=== PATIENT | female | born 2000 | race Hispanic/Latino ===

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

== ENCOUNTER 2020-04-06 07:08 | Outpatient (CLI) | payer OTHER ==
[2020-04-07 12:16] LABS: SARS-CoV-2 MS2 Positive; SARS-CoV-2 N Gene Negative; SARS-CoV-2 S Gene Negative; SARS-CoV-2 orf1ab Negative
== END 2020-04-06 07:09 | disposition home or self-care (01) ==
LOC: LABSCS 07:08
PROVIDERS: ATTEND Family Medicine
DX: Z01.812 Encounter for preprocedural laboratory examination (principal); Z11.59 Encounter for screening for other viral diseases
CPT/HCPCS: 87635; U0003

== ENCOUNTER 2020-04-06 16:24 | Inpatient (IN) | payer OTHER ==
[~2020-04-06 16:24] MED LIST: Bupivacaine 0.25% HCL 30 ML VIAL ONE
[2020-04-06 17:15] VITALS: BMI 21.9
[2020-04-06] MEDS ORDERED: Ondansetron PF 4 MG/2 ML Vial IVP PRN ×2 (17:26→19:26)
[2020-04-06] MEDS ORDERED: NS / Oxytocin 40 units/1000ml 1,000 ML IV PRN ×2 (17:26→22:31)
[2020-04-06] MEDS ORDERED: Promethazine HCl 25 MG/ML VIAL IM PRN ×2 (17:26→19:26)
[2020-04-06] MEDS ORDERED: Ibuprofen 800 MG TAB PO PRN (17:26)
[2020-04-06] MEDS ORDERED: hydrALAZINE 20 MG/ML VIAL SLOW IVP PRN ×2 (17:26→22:46)
[2020-04-06] MEDS ORDERED: Butorphanol Tartrate 1 MG/ML VIAL SLOW IVP PRN (17:26)
[2020-04-06] MEDS ORDERED: Lidocaine 1% (PF) 30 ML VIAL SC PRN (17:26)
[2020-04-06] MEDS ORDERED: HYDROcodone/Acetaminophen 5/325 mg Tablet PO PRN ×2 (17:26)
[2020-04-06] MEDS ORDERED: NS w/ Oxytocin 10 units 500 ML IV SCH ×2 (17:30)
[2020-04-06] MEDS: Lactated Ringer's 1,000 ML IV SCH ×2 (17:43→19:55)
[2020-04-06 18:03] LABS: Hemoglobin 13.3 g/dL (12.0-16.0); Mean Corpuscular HGB CONC 33.6 g/dL (32.0-36.0); Mean Corpuscular Hemoglobin 29.8 pg (25.0-35.0); Mean Corpuscular Volume 88.7 fL (78.0-98.0); Mean Platelet Volume 10.9 fL (7.4-10.4); Platelet Count 149 thou/uL (130-400); RBC Distribution Width 12.3 % (11.5-14.5); Red Blood Cell (RBC) Count 4.46 mill/uL (4.00-5.20); White Blood Cell (WBC) Count 12.2 thou/uL (4.8-10.8)
[2020-04-06] MEDS ORDERED: Fentanyl 4 mcg/Bup 0.1% Cadd 100 ML ONE (18:07)
--- NOTE | 2020-04-06 18:38 | PDOC.LDHP ---
Labor and Delivery H&P Chief complaint: contractions HPI: Pt presents w onset of contractions. No LOF or bleeding. Current gestational age (weeks): 39 Due date: 04/08/20 Dating criteria: last menstrual period, second trimester ultrasound Grav: 1 Para: 0 Current complications: none Abnormal US findings: No Current medications: pre-nilam vitamins Previous surgical history: none Allergies/Adverse Reactions: Allergies Allergy/AdvReac Type Severity Reaction Status Date / Time No Known Allergies Allergy Verified 04/06/20 17:06 Social history: none - Physical Exam Vital signs reviewed and normal: yes General: breathing through contractions Heart: RRR Lungs: CTAB Abdomen: gravid Extremeties: no edema FHT: category 1 - Vaginal Exam cm dilated: 6 (arom w clear fluid) Effacement: 90% Station: 0 - OB Labs Blood type: O RH: positive Antibody Screen: negative HIV: negative RPR: negative HEPSAg: negative GBS: negative Rubella: immune - Assessment L&D Assessment: term patient in labor - Plan Plan: admit to L&D, labor augmentation if indicated, informed consent obtained, anesthesia consult for pain management
[2020-04-06 18:41] LABS: Hep B Surf Ag Non-Reactive S/CO (NonReactive); Syphilis Antibody Nonreactive (Nonreactive); Syphilis Antibody Index 0.03 S/CO (<1.00 Non-Reactive)
[2020-04-06] MEDS ORDERED: Lactated Ringer's 500 ML IV PRN (19:26)
[2020-04-06] MEDS ORDERED: EPHEDRINE 25 MG/5 ML SYRINGE SLOW IVP PRN (19:26)
[2020-04-06] MEDS ORDERED: Naloxone HCl 0.4 mg/ml Vial IVP PRN ×2 (19:26)
[2020-04-06] MEDS ORDERED: diphenhydrAMINE 50 MG/ML VIAL IVP PRN (19:26)
[2020-04-06] MEDS ORDERED: Fentanyl 4 mcg/Bupivacaine 0.1% Cassette 100 ML EPIDURAL SCH (19:30)
[2020-04-06] MEDS ORDERED: Communication Order-Pharmacy FS SCH (19:30)
[2020-04-06] MEDS: Misoprostol 200 MCG TAB ONE (22:12)
[2020-04-06] MEDS: Tranexamic Acid 1,000 MG/10 ML VIAL ONE ×2 (22:13→22:46)
[2020-04-06] MEDS: Carboprost 250 MCG/ML AMP ONE (22:13)
[2020-04-06] MEDS ORDERED: Misoprostol 200 MCG TAB PR PRN (22:31)
[2020-04-06] MEDS ORDERED: Diphenoxylate HCl/Atropine Tablet PO PRN (22:31)
[2020-04-06] MEDS ORDERED: Methylergonovine 0.2 MG/ML VIAL IM PRN (22:31)
[2020-04-06] MEDS ORDERED: Carboprost 250 MCG/ML AMP IM PRN (22:31)
[2020-04-06] MEDS ORDERED: Tranexamic Acid 1,000 MG/10 ML VIAL ONE (22:36)
[2020-04-06] MEDS ORDERED: Tranexamic Acid 1,000 MG in Sodium Chloride 0.9% 250 ML 250 ML IVPB SCH (22:45)
[2020-04-06] MEDS ORDERED: hydrALAZINE 20 MG/ML VIAL ONE (22:52)
[2020-04-06] MEDS ORDERED: Magnesium Sulfate 20 gm/500 ml 20 GM/500 ML BAG ONE (23:01)
[2020-04-07] MEDS: Acetaminophen 325 MG TAB PO PRN ×2 (01:58→13:06)
[2020-04-07] MEDS ORDERED: Magnesium Sulfate 20 gm/500 ml 20 GM/500 ML BAG ONE (08:12)
[2020-04-07] MEDS ORDERED: Magnesium Sulfate 20 gm/500 ml 4 GM/100 ML BAG IVPB ONE (09:10)
[2020-04-07] MEDS ORDERED: Magnesium Sulfate 20 gm/500 ml 20 GM/500 ML BAG IVPB PRN (09:10)
[2020-04-07] MEDS: Misoprostol 200 MCG TAB ONE (13:06)
[2020-04-07] MEDS: Carboprost 250 MCG/ML AMP ONE (13:06)
[2020-04-07] MEDS: Lactated Ringer's 1,000 ML IV SCH (13:08)
[2020-04-07] MEDS ORDERED: Ondansetron PF 4 MG/2 ML Vial IVP PRN (16:20)
[2020-04-07] MEDS ORDERED: Preparation H Ointment 28 GM TUBE PR PRN (16:20)
[2020-04-07] MEDS ORDERED: diphenhydrAMINE 25 MG CAP PO PRN (16:20)
[2020-04-07] MEDS ORDERED: Promethazine HCl 25 MG/ML VIAL IM PRN (16:20)
[2020-04-07] MEDS ORDERED: NS / Oxytocin 40 units/1000ml 1,000 ML IV SCH (16:20)
[2020-04-07] MEDS ORDERED: Bisacodyl 10 MG SUPP PR PRN (16:20)
[2020-04-07] MEDS ORDERED: Lanolin Ointment 7 GM TUBE TOP PRN (16:20)
[2020-04-07] MEDS ORDERED: Adacel (T-DAP) 0.5 ML SYRINGE IM ONE (16:20)
[2020-04-07] MEDS ORDERED: hydrALAZINE 20 MG/ML VIAL SLOW IVP SCH (16:20)
[2020-04-07] MEDS ORDERED: Milk Of Magnesia 30 ML UDCUP PO PRN (16:20)
[2020-04-07] MEDS ORDERED: Benzocaine-Menthol 82.5 ML CAN TOP PRN (16:20)
[2020-04-07] MEDS ORDERED: HYDROcodone/Acetaminophen 5/325 mg Tablet PO PRN ×2 (16:20)
[2020-04-07] MEDS ORDERED: Misoprostol 200 MCG TAB PO SCH (16:30)
[2020-04-07] MEDS: Docusate Calcium (SURFAK) 240 MG CAP PO SCH ×2 (18:03→23:08)
[2020-04-07] MEDS: Ferrous Sulfate 325 MG TAB PO SCH (18:03)
[2020-04-07] MEDS: Prenatal Vitamin 1 TAB PO SCH (18:03)
[2020-04-07] MEDS: Ibuprofen 800 MG TAB PO SCH (23:08)
[2020-04-08] MEDS: Ibuprofen 800 MG TAB PO SCH ×2 (05:12→14:17)
[2020-04-08 06:25] LABS: Hemoglobin 10.5 g/dL (12.0-16.0); Mean Corpuscular HGB CONC 33.7 g/dL (32.0-36.0); Mean Corpuscular Hemoglobin 30.3 pg (25.0-35.0); Mean Platelet Volume 9.8 fL (7.4-10.4); Platelet Count 140 thou/uL (130-400); RBC Distribution Width 12.5 % (11.5-14.5); Red Blood Cell (RBC) Count 3.47 mill/uL (4.00-5.20); White Blood Cell (WBC) Count 11.4 thou/uL (4.8-10.8)
[2020-04-08] MEDS: Prenatal Vitamin 1 TAB PO SCH (09:42)
[2020-04-08] MEDS: Docusate Calcium (SURFAK) 240 MG CAP PO SCH (09:42)
[2020-04-08] MEDS: Ferrous Sulfate 325 MG TAB PO SCH (09:43)
[2020-04-08 10:01] VITALS: BP 111/74; TEMP 97.4
== END 2020-04-08 14:50 | disposition home or self-care (01) | DRG 806 ==
LOC: L&D/OP 16:24 → L&D 22:18 → 3SW 04-08 00:47
PROVIDERS: ADMIT Family Medicine; ATTEND Family Medicine
PROC: 10E0XZZ Delivery of Products of Conception, External Approach (ICD-10-PCS; principal; 2020-04-06)
PROC: 0KQM0ZZ Repair Perineum Muscle, Open Approach (ICD-10-PCS; 2020-04-06)
PROC: 10907ZC Drainage of Amniotic Fluid, Therapeutic from Products of Conception, Via Natural or Artificial Opening (ICD-10-PCS; 2020-04-06)
DX: O76 Abnormality in fetal heart rate and rhythm complicating labor and delivery (principal); O72.1 Other immediate postpartum hemorrhage; Z37.0 Single live birth; Z3A.39 39 weeks gestation of pregnancy; O70.1 Second degree perineal laceration during delivery
CPT/HCPCS: 36415; 51702; 83735; 85027; 86780; 86850; 86900; 86901; 87340; 87635; 99285; J0360; J2001; J2405; J3475; J3490; J7050; S0020; U0003